=== PATIENT | female | born 2005 | race Caucasian/White ===

== ENCOUNTER 2024-06-10 15:35 | Outpatient (AMB) | payer BC, SELFPAY ==
--- NOTE | 2024-06-10 15:36 | MHC.OFFVIS ---
Vital Signs 06/10/24 15:37 Height 5 ft 4.5 in Weight 141 lb 8 oz BMI 23.9 BP 94/62 Blood Pressure Location Rt brachial Position Sitting Pulse 78 Pulse Source Pulse Oximeter Pulse Oximetry (%) 96 Oxygen Delivery Method Room Air Intake Visit Reasons: Chronic Respiratory Symptoms Allergies No Known Allergies Allergy (Verified 06/10/24 15:40) HPI HPI Chronic Respiratory Symptoms: Details: Marii is a pleasnt 19 year old female, never smoker, with no significant PMH. She was referred by PCP for ongoing pulmonary concerns. She reports lung pain and inflammation that has progressively worsened since last year. She notes over the last few months has also developed dry cough, chest tightness, dyspnea with any exertion and inability to fully inspire. She attributes the start of symptoms to possible allergic exposures, currently living in a dorm room. Denies carpets or pets. She does note that when she is not in her dorm, her symptoms seem to improve. She reportedly had allergy testing back in [place], which revealed multiple allergies, using antihistamines PRN. She denies h/o asthma. She has also trialed albuterol MDI/neb with effect however does not last longer than 1-2 hours. She reports being placed on prednisone with good effect however symptoms recur shortly after discontinuing. Her last rx for prednisone was approximately one week ago. She did have evaluation at [facility] ED ddimer negative, EKG, CXR and chest CT unremarkable. She has an upcoming appointment for PFT next week at [facility]. During evaluation over the last year she has been told she may have MCAD however has not been evaluated by risk reduction counselor and is requesting referral. [facility] Social History (Updated 06/10/24 @ 15:40 by Sally Adair CMA) Patient Tobacco Use Status: Never used Tobacco Review of Systems Const Denies chills, Denies excessive sweating, Denies fever(s), Denies headache(s) and Denies night sweats Eyes Denies dry eyes, Denies irritation and Denies itchy eyes ENT Reports Normal hearing present, Denies headache(s), Denies nasal congestion, Denies nasal discharge, Denies post nasal drip and Denies sore throat Card Denies chest pain, Denies chest pain at rest, Denies chest pain with activity, Denies claudication, Denies leg edema, Denies orthopnea and Denies paroxysmal nocturnal dyspnea Resp Denies chest congestion, Denies excessive phlegm production, Denies pain on inspiration, Denies pain with cough, Denies stridor and Denies wheezing Musc Denies myalgias Neuro Reports Normal hearing present and Denies headache(s) Endo Denies excessive sweating Zan/Lymph Denies lymphadenopathy Aller/Immun Denies itchy eyes, Denies seasonal rhinorrhea and Denies wheezing Physical Exam Vital Signs: Last Vital Signs Pulse 78 06/10/24 15:37 BP 94/62 06/10/24 15:37 Pulse Ox 96 06/10/24 15:37 Oxygen Delivery Method Room Air 06/10/24 15:37 BMI result Body Mass Index 23.9 Const General: cooperative, healthy appearing, comfortable, no acute distress, well developed and alert Orientation/consciousness: patient oriented x3 Limitations: no limitations HEENT Head: Yes normal to inspection, Yes normocephalic and Yes atraumatic Ears: hearing grossly normal bilaterally and external ears normal Eyes General: appearance normal, both eyes and all related structures Eyelids: Yes eyelids normal Sclerae: sclerae normal EOM: EOMs intact bilaterally Neck Neck: Yes normal visual inspection and Yes no lymphadenopathy Lymphatic: no lymphadenopathy noted Chest Chest palpation & inspection: normal inspection of the chest Resp Other: diminished bases Effort & Inspection: normal respiratory effort, able to speak in complete sentences, no audible wheezes, no cough, no stridor, not tachypneic, no tripod positioning and no use of accessory muscles Cardio Jugular venous distension: no JVD Rate: regular rate Rhythm: regular rhythm Skin Other: warm, dry General skin exam: no rashes or lesions noted Neuro General: patient oriented x3 Cranial nerves: Yes Normal hearing present Cognition (Neuro): normal cognition Gait exam (Neuro): Normal gait present Extrem General: Yes normal to inspection, Yes capillary refill normal, Yes no clubbing, cyanosis or edema and Yes no pedal edema Psych Appearance: grossly normal and well kempt Speech and movement: Normal speech and movement present and Clear speech present Affect: normal affect Attitude: cooperative Thought process: Normal thought process present Thought content: Normal thought content present Insight: Good insight present (Psych) Judgement: Good judgement present (Psych) Assessment & Plan Assessment & Plan (1) Dyspnea: Code(s): R06.00 - Dyspnea, unspecified Category: Medical (2) Pleuritic pain: Code(s): R07.81 - Pleurodynia Category: Medical (3) Environmental allergies: Code(s): Z91.09 - Other allergy status, other than to drugs and biological substances Category: Medical Plan Marii presents for pulmonary evaluation for worsening lung inflammation with dyspnea, dry cough and chest tightness. She may have underlying asthma with an allergic component. She has upcoming PFT, will review results when able. Given prior allergy testing in [place], will send for RAST including [place] panel. Patient with unremarkable chest CT at [facility], will attempt to obtain images. Given that she has responded well to oral steroids, will trial high dose ICS/LABA to avoid systemic effects. Discussed importance of good oral hygiene. All questions were answered and patient is in agreement of plan. Will follow up in two weeks or sooner if needed. Orders: Orders Complete Blood Count Auto Diff Today Z91.09 - Other allergy status, other than to drugs and biological substances Resp Allergy Profile Region I Today Z91.09 - Other allergy status, other than to drugs and biological substances Immunoglobulin E Today Z91.09 - Other allergy status, other than to drugs and biological substances Hypersensitive Pneumonitis Prf Today Z91.09 - Other allergy status, other than to drugs and biological substances Referrals Allergy & Immunology Referral Z91.09 - Other allergy status, other than to drugs and biological substances Medications: New fluticasone propion-salmeterol 230-21 mcg/actuation (Advair HFA) 2 puffs inhalation Q12H 12 grams 4RF Coding Level of Care Code New Pt Level 4 (62043) Diagnoses Dyspnea R06.00 Pleuritic pain R07.81 Environmental allergies Z91.09
[2024-06-10 15:37] VITALS: BP 94/62; PULSE 78; O2SAT 96; BMI 23.9
== END 2024-06-10 16:27 | disposition home or self-care (01) ==
PROVIDERS: Visit Provider Nurse Practitioner Family
DX: R06.00 Dyspnea, unspecified (principal); R07.81 Pleurodynia; Z91.09 Other allergy status, other than to drugs and biological substances
CPT/HCPCS: 99204

== ENCOUNTER → 2024-06-10 15:35 | Outpatient (BNVA) | payer BC, SELFPAY | PROVIDERS: Visit Provider Nurse Practitioner Family ==

== ENCOUNTER 2024-06-21 14:48 | Outpatient (AMB) | payer BC, SELFPAY ==
--- NOTE | 2024-06-21 14:28 | MHC.OFFVIS ---
Vital Signs 06/21/24 14:51 Height 5 ft 4.5 in Weight 144 lb BMI 24.3 BP 92/60 Blood Pressure Location Lt brachial Position Sitting Pulse 89 Pulse Source Pulse Oximeter Pulse Oximetry (%) 97 Oxygen Delivery Method Room Air Intake Visit Reasons: Chronic Respiratory Symptoms Allergies No Known Allergies Allergy (Verified 06/21/24 14:55) HPI HPI Chronic Respiratory Symptoms: Details: Marii is a pleasant 19 year old female, never smoker, with no significant PMH. She is accompanied by her mother and grandmother today. She continues to report lung pain and inflammation as well as dry cough, chest tightness, dyspnea with any exertion and inability to fully inspire. She continues to state symptoms are worse when she is in her dormroom and significantly improve once she is in a different environment. She reports being placed on prednisone with good effect however symptoms recur shortly after discontinuing. At the last visit, symbicort was sent however she has yet to pick it up. She was also sent for allergy testing and a PFT. Unfortunately, all her labs have not resulted at this time. [facility] Social History Patient Tobacco Use Status: Never used Tobacco Review of Systems Const Denies chills, Denies excessive sweating, Denies fever(s), Denies headache(s) and Denies night sweats Eyes Denies dry eyes, Denies irritation and Denies itchy eyes ENT Reports Normal hearing present, Denies headache(s), Denies nasal congestion, Denies nasal discharge, Denies post nasal drip and Denies sore throat Card Denies chest pain, Denies chest pain at rest, Denies chest pain with activity, Denies claudication, Denies leg edema, Denies orthopnea and Denies paroxysmal nocturnal dyspnea Resp Denies chest congestion, Denies excessive phlegm production, Denies pain on inspiration, Denies pain with cough, Denies stridor and Denies wheezing Musc Denies myalgias Neuro Reports Normal hearing present and Denies headache(s) Endo Denies excessive sweating Zan/Lymph Denies lymphadenopathy Aller/Immun Denies itchy eyes, Denies seasonal rhinorrhea and Denies wheezing Physical Exam Vital Signs: Last Vital Signs Pulse 89 06/21/24 14:51 BP 92/60 06/21/24 14:51 Pulse Ox 97 06/21/24 14:51 Oxygen Delivery Method Room Air 06/21/24 14:51 BMI result Body Mass Index 24.3 Const General: cooperative, healthy appearing, comfortable, no acute distress, well developed and alert Orientation/consciousness: patient oriented x3 Limitations: no limitations HEENT Head: Yes normal to inspection, Yes normocephalic and Yes atraumatic Ears: hearing grossly normal bilaterally and external ears normal Eyes General: appearance normal, both eyes and all related structures Eyelids: Yes eyelids normal Sclerae: sclerae normal EOM: EOMs intact bilaterally Neck Neck: Yes normal visual inspection and Yes no lymphadenopathy Lymphatic: no lymphadenopathy noted Chest Chest palpation & inspection: normal inspection of the chest Resp Other: diminished bases Effort & Inspection: normal respiratory effort, able to speak in complete sentences, no audible wheezes, no cough, no stridor, not tachypneic, no tripod positioning and no use of accessory muscles Cardio Jugular venous distension: no JVD Rate: regular rate Rhythm: regular rhythm Skin Other: warm, dry General skin exam: no rashes or lesions noted Neuro General: patient oriented x3 Cranial nerves: Yes Normal hearing present Cognition (Neuro): normal cognition Gait exam (Neuro): Normal gait present Extrem General: Yes normal to inspection, Yes capillary refill normal, Yes no clubbing, cyanosis or edema and Yes no pedal edema Psych Appearance: grossly normal and well kempt Speech and movement: Normal speech and movement present and Clear speech present Affect: normal affect Attitude: cooperative Thought process: Normal thought process present Thought content: Normal thought content present Insight: Good insight present (Psych) Judgement: Good judgement present (Psych) Assessment & Plan Assessment & Plan (1) Dyspnea: Code(s): R06.00 - Dyspnea, unspecified Category: Medical (2) Pleuritic pain: Code(s): R07.81 - Pleurodynia Category: Medical (3) Environmental allergies: Code(s): Z91.09 - Other allergy status, other than to drugs and biological substances Category: Medical Plan Reviewed PFT which revealed mild obstruction with FEV1/FVC 69% but unfortunately did not meet ATS standards and was unable to complete test. We did discuss that this is suggestive of asthma and should trial Symbicort that was previously sent in. Awaiting lab results and images of prior CT chest. All questions were answered and patient is in agreement of plan. Will follow up to review results and response to inhaler or sooner if needed. Coding Level of Care Code Est Pt Level 3 (04566) Diagnoses Dyspnea R06.00 Pleuritic pain R07.81 Environmental allergies Z91.09
[2024-06-21 14:51] VITALS: BP 92/60; PULSE 89; O2SAT 97; BMI 24.3
== END 2024-06-21 15:27 | disposition home or self-care (01) ==
LOC: HO.HPSW 14:49
PROVIDERS: Visit Provider Nurse Practitioner Family
DX: R06.00 Dyspnea, unspecified (principal); R07.81 Pleurodynia; Z91.09 Other allergy status, other than to drugs and biological substances
CPT/HCPCS: 99213

== ENCOUNTER 2024-07-04 10:29 | Outpatient (REF) | payer BC, SELFPAY | END 2024-07-04 10:30 | disposition home or self-care (01) | LOC: CF 10:29 | DX: Z13.89 Encounter for screening for other disorder (principal) ==

== ENCOUNTER 2024-07-26 15:24 | Outpatient (AMB) | payer BC, SELFPAY ==
--- NOTE | 2024-07-26 15:25 | MHC.OFFVIS ---
Vital Signs 07/26/24 15:27 Height 5 ft 4.5 in Weight 143 lb BMI 24.2 BP 100/58 L Blood Pressure Location Rt brachial Position Sitting Pulse 88 Pulse Source Pulse Oximeter Pulse Oximetry (%) 98 Oxygen Delivery Method Room Air Intake Visit Reasons: Chronic Respiratory Symptoms Allergies No Known Allergies Allergy (Verified 07/26/24 15:30) HPI HPI Chronic Respiratory Symptoms: Details: Marii is a pleasant 19 year old female, never smoker, with no significant PMH. She is accompanied by her mother and grandmother today. She continues to report lung pain and inflammation as well as dry cough, chest tightness, dyspnea with any exertion and inability to fully inspire. She notes symptoms are worse when she is in her dormroom and significantly improve once she is in a different environment. She has been trialing Advair however reports suboptimal effect continuing with aforementioned symptoms and newly over the last two weeks increased inflammation of the lungs with associated discomfort. She denies any visits to urgent care hospitalizations related to respiratory distress since last visit. Today she presents to review allergy testing. [facility] Social History Patient Tobacco Use Status: Never used Tobacco Review of Systems Const Denies chills, Denies excessive sweating, Denies fever(s), Denies headache(s) and Denies night sweats Eyes Denies dry eyes, Denies irritation and Denies itchy eyes ENT Reports Normal hearing present, Denies headache(s), Denies nasal congestion, Denies nasal discharge, Denies post nasal drip and Denies sore throat Card Denies chest pain, Denies chest pain at rest, Denies chest pain with activity, Denies claudication, Denies leg edema, Denies orthopnea and Denies paroxysmal nocturnal dyspnea Resp Denies chest congestion, Denies excessive phlegm production, Denies pain on inspiration, Denies pain with cough, Denies stridor and Denies wheezing Musc Denies myalgias Neuro Reports Normal hearing present and Denies headache(s) Endo Denies excessive sweating Zan/Lymph Denies lymphadenopathy Aller/Immun Denies itchy eyes, Denies seasonal rhinorrhea and Denies wheezing Physical Exam Vital Signs: Last Vital Signs Pulse 88 07/26/24 15:27 BP 100/58 L 07/26/24 15:27 Pulse Ox 98 07/26/24 15:27 Oxygen Delivery Method Room Air 07/26/24 15:27 BMI result Body Mass Index 24.2 Const General: cooperative, healthy appearing, comfortable, no acute distress, well developed and alert Orientation/consciousness: patient oriented x3 Limitations: no limitations HEENT Head: Yes normal to inspection, Yes normocephalic and Yes atraumatic Ears: hearing grossly normal bilaterally and external ears normal Eyes General: appearance normal, both eyes and all related structures Eyelids: Yes eyelids normal Sclerae: sclerae normal EOM: EOMs intact bilaterally Neck Neck: Yes normal visual inspection and Yes no lymphadenopathy Lymphatic: no lymphadenopathy noted Chest Chest palpation & inspection: normal inspection of the chest Resp Other: diminished bases Effort & Inspection: normal respiratory effort, able to speak in complete sentences, no audible wheezes, no cough, no stridor, not tachypneic, no tripod positioning and no use of accessory muscles Cardio Jugular venous distension: no JVD Rate: regular rate Rhythm: regular rhythm Skin Other: warm, dry General skin exam: no rashes or lesions noted Neuro General: patient oriented x3 Cranial nerves: Yes Normal hearing present Cognition (Neuro): normal cognition Gait exam (Neuro): Normal gait present Extrem General: Yes normal to inspection, Yes capillary refill normal, Yes no clubbing, cyanosis or edema and Yes no pedal edema Psych Appearance: grossly normal and well kempt Speech and movement: Normal speech and movement present and Clear speech present Affect: normal affect Attitude: cooperative Thought process: Normal thought process present Thought content: Normal thought content present Insight: Good insight present (Psych) Judgement: Good judgement present (Psych) Assessment & Plan Assessment & Plan (1) Asthma: Code(s): J45.909 - Unspecified asthma, uncomplicated Category: Medical (2) Dyspnea: Code(s): R06.00 - Dyspnea, unspecified Category: Medical (3) Pleuritic pain: Code(s): R07.81 - Pleurodynia Category: Medical (4) Environmental allergies: Code(s): Z91.09 - Other allergy status, other than to drugs and biological substances Category: Medical Plan Reviewed PFT and Chest CT images with patient which were suggestive of asthma, with mild obstructive defect on PFT and mosaic pattern on CT. Reviewed RAST which was positive for dust mites and cat. Will trial singulair in addition to Advair. Discussed ways to minimize allergen exposures. She continues to report lung inflammation although nothing noted on chest CT in regards to inflammatory or infectious etiologies. Will send for inflammatory makers. Prior ddimer, troponins, EKG and echo negative. She is aware if symptoms worsen to seek emergent care. All questions were answered and patient is in agreement of plan. Will follow up to review results and response to singulair or sooner if needed. Orders: Orders Erythrocyte Sedimentation Rate Today R07.81 - Pleurodynia CRP High Sensitivity Today R07.81 - Pleurodynia Medications: New montelukast (Singulair) 10 mg PO BEDTIME 30 tabs 3RF Coding Level of Care Code Est Pt Level 4 (39900) Diagnoses Asthma J45.909 Dyspnea R06.00 Pleuritic pain R07.81 Environmental allergies Z91.09
[2024-07-26 15:27] VITALS: BP 100/58; PULSE 88; O2SAT 98; BMI 24.2
== END 2024-07-26 16:11 | disposition home or self-care (01) ==
PROVIDERS: Visit Provider Nurse Practitioner Family
DX: J45.909 Unspecified asthma, uncomplicated (principal); R06.00 Dyspnea, unspecified; R07.81 Pleurodynia; Z91.09 Other allergy status, other than to drugs and biological substances
CPT/HCPCS: 99214

== ENCOUNTER 2024-09-14 13:11 | Outpatient (AMB) | payer BC, SELFPAY ==
[2024-09-14 13:12] VITALS: BP 104/60; PULSE 83; O2SAT 96
--- NOTE | 2024-09-14 13:12 | A.OFFVIS_ITS ---
Vital Signs 09/14/24 13:12 Weight 145 lb BP 104/60 Blood Pressure Location Rt brachial Position Sitting Pulse 83 Pulse Source Pulse Oximeter Pulse Oximetry (%) 96 Oxygen Delivery Method Room Air Intake Visit Reasons: Chronic Respiratory Symptoms Rigger Chief Required: No Allergies No Known Allergies Allergy (Verified 09/14/24 13:16) Medication List - Last Reconciled 09/14/24 by Yuliana Giraldo LPN fluticasone propion-salmeterol 230-21 mcg/actuation (Advair HFA) 2 puffs inhalation Q12H montelukast (Singulair) 10 mg PO BEDTIME HPI HPI Chronic Respiratory Symptoms: Details: Marii is a pleasant 19 year old female, never smoker, with no significant PMH. She continues to report suboptimal response to Symbicort 160 mcg and Singulair, noting chest irritation, chest tightness and dyspnea on exertion. Prior CT chest, ddimer, troponins, EKG and echo unremarkable. At the last visit, orders to assess inflammatory markers were ordered however she was unaware of these. She was seen by another pulmonary provider during school break, in [place] where she resides, who started her on Spiriva 4 weeks ago and reports mild improvement. She has albuterol MDI, however results in tachycardia, so uses infrequently. She continues to report symptoms are worse when she is in her dorm room and significantly improve once she is in a different environment, suggesting allergens playing a role in symptoms. She was referred to [facility], recently evaluated and will be initiating allergen immunotherapy with the possibility of starting Xolair. [facility] Social History Patient Tobacco Use Status: Never used Tobacco Review of Systems Const Denies chills, Denies excessive sweating, Denies fever(s), Denies headache(s) and Denies night sweats Eyes Denies dry eyes, Denies irritation and Denies itchy eyes ENT Reports Normal hearing present, Denies headache(s), Denies nasal congestion, Denies nasal discharge, Denies post nasal drip and Denies sore throat Card Denies chest pain, Denies chest pain at rest, Denies chest pain with activity, Denies claudication, Denies leg edema, Reports dyspnea on exertion, Denies orthopnea and Denies paroxysmal nocturnal dyspnea Resp Denies chest congestion, Denies cough, Denies excessive phlegm production, Denies pain on inspiration, Denies pain with cough, Reports dyspnea on exertion, Denies stridor and Denies wheezing Musc Denies myalgias Neuro Reports Normal hearing present and Denies headache(s) Endo Denies excessive sweating Zan/Lymph Denies lymphadenopathy Aller/Immun Denies itchy eyes, Denies seasonal rhinorrhea and Denies wheezing Physical Exam Vital Signs: Last Vital Signs Pulse 83 09/14/24 13:12 BP 104/60 09/14/24 13:12 Pulse Ox 96 09/14/24 13:12 Oxygen Delivery Method Room Air 09/14/24 13:12 Const General: cooperative, healthy appearing, comfortable, no acute distress, well developed and alert Orientation/consciousness: patient oriented x3 Limitations: no limitations HEENT Head: Yes normal to inspection, Yes normocephalic and Yes atraumatic Ears: hearing grossly normal bilaterally and external ears normal Eyes General: appearance normal, both eyes and all related structures Eyelids: Yes eyelids normal Sclerae: sclerae normal EOM: EOMs intact bilaterally Neck Neck: Yes normal visual inspection and Yes no lymphadenopathy Lymphatic: no lymphadenopathy noted Chest Chest palpation & inspection: normal inspection of the chest Resp Effort & Inspection: normal respiratory effort, able to speak in complete sentences, no audible wheezes, no cough, no stridor, not tachypneic, no tripod positioning and no use of accessory muscles Auscultation: clear to auscultation bilaterally Cardio Jugular venous distension: no JVD Rate: regular rate Rhythm: regular rhythm Skin Other: warm, dry General skin exam: no rashes or lesions noted Neuro General: patient oriented x3 Cranial nerves: Yes Normal hearing present Cognition (Neuro): normal cognition Gait exam (Neuro): Normal gait present Extrem General: Yes normal to inspection, Yes capillary refill normal, Yes no clubbing, cyanosis or edema and Yes no pedal edema Psych Appearance: grossly normal and well kempt Speech and movement: Normal speech and movement present and Clear speech present Affect: normal affect Attitude: cooperative Thought process: Normal thought process present Thought content: Normal thought content present Insight: Good insight present (Psych) Judgement: Good judgement present (Psych) Assessment & Plan Assessment & Plan (1) Asthma: Code(s): J45.909 - Unspecified asthma, uncomplicated Category: Medical (2) Dyspnea: Code(s): R06.00 - Dyspnea, unspecified Category: Medical (3) Pleuritic pain: Code(s): R07.81 - Pleurodynia Category: Medical (4) Environmental allergies: Code(s): Z91.09 - Other allergy status, other than to drugs and biological substances Category: Medical Plan She continues to report suboptimal effect with Singulair, Symbicort and Spiriva. She is hopeful that once initiating allergen immunotherapy, symptoms will improve. She has an appt to start in three weeks. She continues to report pleuritic irritation although chest CT did not reveal any inflammatory or infectious etiologies. She is aware there were orders to check inflammatory makers and will have these obtained today. If symptoms change she will call or if they worsen, seek emergent care. Will also send in levalbuterol in place of albuterol MDI, as it results in tachycardia. All questions were answered and patient is in agreement of plan. Will follow up in three months or sooner if needed. Medications: New levalbuterol tartrate 45 mcg/actuation 1 puff inhalation Q4-6H PRN 15 grams 3RF shortness of breath Coding Level of Care Code Est Pt Level 4 (78289) Diagnoses Asthma J45.909 Dyspnea R06.00 Pleuritic pain R07.81 Environmental allergies Z91.09
== END 2024-09-14 14:01 | disposition home or self-care (01) ==
PROVIDERS: Visit Provider Nurse Practitioner Family
DX: J45.909 Unspecified asthma, uncomplicated (principal); R06.00 Dyspnea, unspecified; R07.81 Pleurodynia; Z91.09 Other allergy status, other than to drugs and biological substances
CPT/HCPCS: 99214

== ENCOUNTER → 2024-09-14 13:11 | Outpatient (BNVA) | payer BC, SELFPAY | PROVIDERS: Visit Provider Nurse Practitioner Family ==

== ENCOUNTER 2024-09-14 14:00 | Outpatient (REF) | payer BC, SELFPAY ==
[2024-09-14 18:40] LABS: Erythrocyte Sedimentation Rate 5 MM/HR (0-20)
[2024-09-15 10:23] LABS: CRP High Sensitivity 0.2 mg/L
== END 2024-09-14 14:01 | disposition home or self-care (01) ==
LOC: HO.WFDLDS 14:00
PROVIDERS: Visit Provider Nurse Practitioner Family
DX: R07.81 Pleurodynia (principal); J45.909 Unspecified asthma, uncomplicated; R06.00 Dyspnea, unspecified; Z91.09 Other allergy status, other than to drugs and biological substances
CPT/HCPCS: 36415; 85652; 86141